=== PATIENT | female | born 1970 ===

== ENCOUNTER 2018-05-04 13:34 | Emergency (ER) | payer BC, OTHER ==
[2018-05-04 13:48] VITALS: BP 105/70; PULSE 70; RESP 16; TEMP 98.3; O2SAT 98
[2018-05-04] MEDS ORDERED: Lidocaine 2% Jelly (Uro-Jet) TOP ONE (14:02)
[2018-05-04] MEDS ORDERED: Lidocaine 2% Jelly (Uro-Jet) ONE (14:11)
--- NOTE | 2018-05-04 14:54 | C.PDOC ---
History Of Present Illness 47-year-old female presents to the ED for evaluation of a nose stub that has been embedded in her right nare for the past 3 days. Patient states that she had her nose pierced around three months ago and tried to switch her hoop ring into a stud. She denies injuries and has no other complaints at this time. Time Seen by Provider: 05/04/18 13:49 Chief Complaint (Nursing): Abnormal Skin Integrity History Per: Patient Onset/Duration Of Symptoms: Days (3) Current Symptoms Are (Timing): Still Present Additional History Per: Patient Past Medical History Reviewed: Historical Data, Nursing Documentation, Vital Signs Vital Signs: Last Vital Signs Temp 98.3 F 05/04/18 13:45 Pulse 70 05/04/18 13:45 Resp 16 05/04/18 13:45 BP 105/70 05/04/18 13:45 Pulse Ox 98 05/04/18 13:45 - Medical History PMH: No Chronic Diseases Surgical History: No Surg Hx Family History: States: Unknown Family Hx - Social History Hx Alcohol Use: Yes Hx Substance Use: No - Immunization History Hx Tetanus Toxoid Vaccination: No Hx Influenza Vaccination: No Hx Pneumococcal Vaccination: No Review Of Systems Skin: Positive for: Other (nose ring embedded in right nare ) Physical Exam - Physical Exam Appears: Non-toxic, No Acute Distress Skin: Normal Color, Warm, Dry Head: Atraumatic, Normacephalic Eye(s): bilateral: Normal Inspection Nose: No Discharge, Other (there is a small piercing puncture to right outer nare with palpable nose stud embedded inside. circular coil is visible inside right nare. mild surrounding swelling and erythema.) Neck: Supple Chest: Symmetrical, No Deformity, No Tenderness Cardiovascular: Rhythm Regular, No Murmur Respiratory: Normal Breath Sounds, No Rales, No Rhonchi, No Wheezing Extremity: Normal ROM Neurological/Psych: Oriented x3, Normal Speech, Normal Cognition ED Course And Treatment O2 Sat by Pulse Oximetry: 98 (on RA) Pulse Ox Interpretation: Normal Progress Note: Lidocaine gel inserted into right nare for anesthesia, patient tolerated well. Using a needle hazmat tanker driver, I was able to push the nose stuf back through the piercing hole on the outer nare. Patient tolerated procedure well. Disposition Counseled Patient/Family Regarding: Diagnosis, Need For Followup, Rx Given - Disposition Referrals: John Judd MD [Medical Doctor] - Disposition: HOME/ ROUTINE Disposition Time: 14:55 Condition: STABLE Additional Instructions: FOLLOW UP YOUR DOCTOR/CLINIC IN 1-2 DAYS USE MEDICATION UNTIL FINISHED RETURN TO ER IF SYMPTOMS WORSEN Prescriptions: Cephalexin [Keflex] 500 mg PO BID #14 capsule Forms: [facility] (Micronesian), General Discharge Instructions Print Language: TOGOLESE - Clinical Impression Clinical Impression: Superficial foreign body of nose - Scribe Statement The provider has reviewed the documentation as recorded by the Scribe (Danielle Mckenzie) Provider Attestation: All medical record entries made by the Scribe were at my direction and personally dictated by me. I have reviewed the chart and agree that the record accurately reflects my personal performance of the history, physical exam, medical decision making, and the department course for this patient. I have also personally directed, reviewed, and agree with the discharge instructions and disposition.
== END 2018-05-04 15:02 | disposition home or self-care (01) ==
LOC: C.ER 13:34
DX: S00.35XA Superficial foreign body of nose, initial encounter (principal); X58.XXXA Exposure to other specified factors, initial encounter